=== PATIENT | female | born 1995 | race Hispanic/Latino ===

== ENCOUNTER 2020-07-30 10:23 | Emergency (ER) | payer OTHER, SELFPAY ==
[2020-07-30 10:54] VITALS: BP 119/78; PULSE 95; RESP 30; TEMP 37.6; O2SAT 95
[2020-07-30] MEDS: ALBUTEROL SULFATE NEB 2.5 MG/3 ML INH INHALATION (11:14)
--- NOTE | 2020-07-30 11:22 | ED.URI ---
HPI - URI/Sore Throat General Chief Complaint: Upper Respiratory Infection Stated Complaint: Cough,Tired,Headache Time Seen by Provider: 07/30/20 11:00 Source: patient Mode of arrival: ambulatory Limitations: no limitations History of Present Illness HPI Narrative: Angelita Watson is a 25 yo non-Divehi speaking female with no PMH [facility] of shortness of breath congestion and rapid respiratory rate x24 hours. [employer]ric Worker Supervisor assisted in gathering information from the patient and explaining both treatment testing and home recommendations Patient is 3 months and started developing symptoms 24 hours ago she states that they have worsened and that she has become relatively short of breath without much exertion, she had stress test about diabetes ROS she is a 3 para 2. Her blood sugar has been normal between pregnancies. Patient states she has a family history of diabetes. She is somewhat fearful. Related Data Allergies Allergy/AdvReac Type Severity Reaction Status Date / Time No Known Allergies Allergy Verified 07/30/20 11:15 Review of Systems Review of Systems: Narrative: CONSTITUTIONAL: Low-grade fever, chills, sweats. EYES: Denies visual changes, redness, discharge. ENT: Has rhinorrhea, has congestion, has sore throat, no otalgia. CARDIOVASCULAR: Denies chest pain, palpitations, edema. RESPIRATORY: Denies dyspnea, has wheezing, cough GASTROINTESTINAL: Denies abdominal pain, nausea, vomiting, diarrhea. GENITOURINARY: Denies dysuria, hematuria, abnormal discharge SKIN: Denies rash or itching. NEUROLOGIC: Denies numbness, or focal weakness. PSYCHIATRIC: Denies anxiety or depression. [facility] Past Medical History Medical History Gestational diabetes Family History Family History Other Diabetes mellitus Social History Social History Smoking status: Never smoker Alcohol intake: never Comments At time of signature, I agree with nursing past medical, surgical, social and family history. There is no relevant family history pertinent to the presenting complaint. Exam Narrative: Exam Narrative: GENERAL: This is a well-nourished, well-developed patient, in mild distress. HEAD: normocephalic, atraumatic. EYES: Sclera clear/white. Vision is grossly intact. EARS: External ears normal, auditory canals clear and without drainage, Hearing grossly intact. NOSE: External nose normal with nasal discharge, nares without redness, no rhinorrhea. THROAT: Mucous membranes moist, posterior pharynx erythema NECK: Neck supple, non-tender CARDIOVASCULAR: Tachycardic r rate and rhythm without murmurs, gallops, or rubs. RESPIRATORY: Diminished to auscultation. Breath sounds equal bilaterally. Has wheezes, respiratory rate is 24-30 on exam. No rales, or rhonchi. GASTROINTESTINAL: Abdomen soft, non-tender, abdomen mildly distended possibly consistent with 3-month SKIN: warm, intact with no suspicious lesions or rash, good texture and turgor. NEURO: awake, alert, and oriented to person, place and time. There were no obvious focal neurologic abnormalities. Steady gait EXTREMITIES: Normal range of motion. BACK: Nontender without deformity Course Course Emergency Course: 25-year-old female that is 3 months comes to express care for complaints of fever congestion and shortness of breath that has worsened over the last past 24 hours Covid rapid test is positive, negative strep and flu Patient given nebulizer treatment Through diplomatic interpreter patient explained procedures and medications given 60 mg of prednisone on site along with nebulizer treatment ReAssessment 1 Improved wheezing although still has some sporadic areas of wheezing on exam reexam Patient states feeling better Nurses diplomatic interpreter
[2020-07-30] MEDS: predniSONE 20 MG TABLET 60 MG PO (11:25)
--- NOTE | 2020-07-30 11:43 | PC.NURSE ---
medication order and pt id verified by this rn, manager academic, phillip wynn, and pt. while in room.
[2020-07-30 12:12] VITALS: PULSE 121; RESP 20; O2SAT 94
== END 2020-07-30 12:12 | disposition home or self-care (01) ==
PROVIDERS: Emergency Provider Nurse Practitioner
DX: U07.1 COVID-19 (principal)
CPT/HCPCS: 87081; 87426; 87804; 87880; 94640; 99203; C9803; G0463; J7512